=== PATIENT | female | born 1935 ===

== ENCOUNTER 2017-09-17 07:38 | Outpatient (CLI) | payer OTHER ==
[~2017-09-17 07:38] MED LIST: CALTRATE PO; CARAFATE1 G PO; CLARITIN10 M1 PO; CLONAZEPAM2 MG PO; FLOVENT 110MCG7.9 GM IH; FOLIC ACID0.8 MG PO; METROPOLOL PO; OSTERA TABLET1 EACH PO; PAXIL10 MG/5 ML PO; PRINIVIL20 MG PO
== END 2017-09-17 07:42 | disposition home or self-care (01) ==
LOC: SONOGRAMA 07:38
DX: E04.2 Nontoxic multinodular goiter (principal)